=== PATIENT | female | born 1950 | race Caucasian/White ===

== ENCOUNTER 2017-03-21 20:18 | Emergency (ER) | END 2017-03-21 22:33 | disposition home or self-care (01) ==

== ENCOUNTER 2018-05-31 06:19 | Day surgery (SDC) | payer OTHER ==
[2018-05-30 10:22] VITALS: Ht 157.5 cm; Wt 67.7 kg
[~2018-05-31] VITALS: Ht 157.5 cm; Wt 67.7 kg
[2018-05-31] VITALS (12 sets, daily range): BP systolic 91–110; BP diastolic 50–69; PULSE 62–80; RESP 11–17
[~2018-05-31 06:19] MED LIST: ACET500C5 PO; AMLO-218 PO; CARV12.598 PO; GUAI5SYR2 PO; OSEL75CA23 PO
--- NOTE | 2018-05-31 07:23 | PREOPHP ---
DATE OF ADMISSION: 05/31/2018 HISTORY OF PRESENT ILLNESS: This is a 68-year-old lady, 8, para 7, with 1 spontaneous aborti on. Her last normal menstrual period was at the age of 46. She was admitted for LEEP and D and C. This patient had an abnormal Pap smear, ASCUS plus positive HPV. Colposcopy biopsy done showed BARBARA 2 to rule out cancer. She was admitted for LEEP and D and C. The procedures were explained to the cynthia calzada and she understood everything totally. The risks, benefits and alternatives were discussed wit h her as well. She is 9, para 7, with 7 normal deliveries. GYNECOLOGIC HISTORY: She had menarche at the age of 13, every 28 days interval, 3 to 4 days duration and moderate in amount. MEDICAL HISTORY: History of hypertension. FAMILY HISTORY: High blood pressure. Sister has diabetes and cancer. REVIEW OF SYSTEMS: CARDIOVASCULAR: No chest pains. RESPIRATORY: No cough. GASTROINTESTINAL: No diarrhea, no vomiting. GENITOURINARY: No dysuria. PHYSICAL EXAMINATION: GENERAL: Reveals a conscious, coherent lady in no acute distress. VITAL SIGNS: Her blood pressure 120/80, pulse rate 80 per minute, respirations 16 per minute. BREASTS, HEART AND LUNGS: Within normal limits. ABDOMEN: Soft. No organomegaly. PELVIC: Revealed the cervix to be firm, uterus of normal size, and adnexa were negative for masses. RECTAL: Confirmed the pelvic findings. EXTREMITIES: No pedal edema. ADMITTING DIAGNOSIS: Cervical intraepithelial neoplasia to rule out carcinoma of the cervix. The patient was planned to have the LEEP and D and C. The procedures were explained to the patient a nd she understood everything totally. The risks, benefits and alternatives were discussed with her a s well. Dictated By: TITO RAINES/ROYCE Conf#: [id number] DID#: [id number]
--- NOTE | 2018-05-31 08:06 | PREAC ---
Date/Time of Note Date/Time of Note DATE: 05/31/18 TIME: 08:05 Anesthesia Eval and Record Evaluation Time Pre-Procedure Interview DATE: 05/31/18 TIME: 08:04 Age 68 Sex female NPO: 8 hrs Preoperative diagnosis cervical dysplasia Planned procedure d and c , leep Past Medical History Past Medical History: Includes Cardio: HTN Surgery & Anesthesia Issues No known issue Meds Anticoagulation: No Beta Vivien within 24 hr: Yes Active Scripts Oseltamivir Phosphate* (Tamiflu*) 75 Mg Capsule, 75 MG PO BID for 5 Days, CAP Prov:PETRA WELLS MD 03/21/17 Guaifenesin-Dextromethorphan* (Robitussin* DM) 100MG/10MG/5ML Syrup, 5 ML PO Q4H PRN for COUGH for 4 Days, ML Prov:PETRA WELLS MD 03/21/17 Acetaminophen* (Tylophen*) 500 Mg Capsule, 1 CAP PO Q6H PRN for PAIN AND OR ELEVATED TEMP, #20 CAP Prov:PETRA WELLS MD 03/21/17 Reported Medications Carvedilol* (Coreg*) 12.5 Mg Tablet, 12.5 MG PO DAILY, #60 TAB 05/30/18 Amlodipine Besylate* (Norvasc*) 10 Mg Tablet, 10 MG PO DAILY, TAB 05/30/18 Meds reviewed: Yes Allergies Coded Allergies: No Known Allergy (Unverified , 10/04/15) Allergies Reviewed: Yes Labs/Studies Labs Reviewed: Reviewed by anesthesiologist Blood Bank Test 05/30/18 10:17 Antibody Screen NEGATIVE Blood Type AB POSITIVE test: N/A Studies: ECG, CXR Pre-procedure Exam Airway: Adequate mouth opening, Adequate thyromental dist Mallampati: Mallampati I Teeth: Normal Lung: Normal Heart: Normal ASA Physical Status ASA physical status: 2 Emergency: None Planned Anesthetic General/MAC: LMA Planned Pain Management Parenteral pain med Pre-operative Attestations Prior to commencing anesthesia and surgery, the patient was re-evaluated, there was verification of: *The patient's identity *The results of appropriate recent lab work and preoperative vital signs *The above evaluation not changing prior to induction *Anesthetic plan, risk benefits, alternative and complications discussed with patient/family; questions answered; patient/family understands, accepts and wishes to proceed. BABAK SABA May 31, 2018 08:06
[2018-05-31] MEDS ORDERED: PROPOFOL 100 ML ONE (09:31)
[2018-05-31] MEDS ORDERED: FENTAnyl 50 MCG/ML VIAL ONE (09:32)
[2018-05-31] MEDS ORDERED: STRONG IODINE 14 ML SOLUTION TOP ONE (09:40)
[2018-05-31] MEDS ORDERED: ONDANSETRON 4 MG INJ ONE (09:59)
[2018-05-31] MEDS ORDERED: DEXAMETHASONE 4 MG/ML 5 ML INJ ONE (09:59)
--- NOTE | 2018-05-31 10:19 | PAC ---
Date/Time of Note Date/Time of Note DATE: 05/31/18 TIME: 10:18 Post-Anesthesia Notes Post-Anesthesia Note Last documented vital signs tmp 98.4 bp 94/67 o2 sat 98%. p71 Activity: WNL Respiratory function: WNL Cardiovascular function: WNL Mental status: Baseline Pain reasonably controlled: Yes Hydration appropriate: Yes Nausea/Vomiting absent: Yes BABAK SABA May 31, 2018 10:18
[2018-05-31] MEDS ORDERED: hydrALAzine 20 MG INJ IV PRN (10:30)
[2018-05-31] MEDS ORDERED: ALBUTEROL 0.083% (NEB) 2.5 MG/3 ML AMP HHN PRN (10:30)
[2018-05-31] MEDS ORDERED: KETOROLAC 30 MG INJ IV PRN (10:30)
[2018-05-31] MEDS ORDERED: ONDANSETRON 4 MG INJ IV PRN (10:30)
[2018-05-31] MEDS ORDERED: EPHEDrine SULFATE 50 MG/5 ML SYG IV PRN (10:30)
[2018-05-31] MEDS ORDERED: MIDAZOLAM 1 MG/ML 2 ML INJ IV PRN (10:30)
[2018-05-31] MEDS ORDERED: OXYCODONE/ACETAMINOPHEN (5/325) TAB PO PRN ×2 (10:30)
[2018-05-31] MEDS ORDERED: DIPHENHYDRAMINE 50 MG INJ IV PRN (10:30)
[2018-05-31] MEDS ORDERED: HYDROmorphONE 1 MG/5 ML IV SYRINGE IV PRN ×3 (10:30)
[2018-05-31] MEDS ORDERED: LABETALOL HCL 20MG INJ IV PRN (10:30)
[2018-05-31] MEDS ORDERED: MEPERIDINE 25 MG INJ IV PRN (10:30)
[2018-05-31] MEDS ORDERED: FENTAnyl 50 MCG/ML VIAL IV PRN ×3 (10:30)
--- NOTE | 2018-05-31 11:12 | SIPON ---
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
[2018-05-31] MEDS ORDERED: ACETAMINOPHEN 325 MG TAB PO PRN (11:30)
--- NOTE | 2018-05-31 18:12 | OPR ---
DATE OF OPERATION: 05/31/2018 PREOPERATIVE DIAGNOSES: 1. Cervical intraepithelial neoplasia 2. 2. Rule out carcinoma of the cervix. POSTOPERATIVE DIAGNOSES: 1. Cervical intraepithelial neoplasia 2. 2. Rule out carcinoma of the cervix. 3. Pending pathology report. SURGEON: Lala Craven MD FLEET MAINTENANCE MANAGER: Jean zavala. ANESTHESIA: General. OPERATION PERFORMED: LEEP and D and C. OPERATIVE TECHNIQUE: Under general anesthesia, the patient was prepped and draped in the usual fashi on for vaginal surgery. Pelvic exam under anesthesia revealed the cervix to be firm, uterus of lala l size and adnexa were negative for masses. Then, the heavy weight vaginal retractor was put in plac e and the anterior lip of the cervix was grasped with an Allis clamp. The whole cervix was dabbed wi th Lugol's solution. The external os of the cervix did not take the Lugol's. The loop was passed fr om left to right on the anterior lip of the cervix and from left to right on the posterior lip of the cervix. A good amount of tissue was obtained. Another loop was passed up to the endocervical canal . A good amount of tissue was obtained. Endocervical curettage was done and a small amount of tissu e was obtained. The uterus was sounded to about 2 inches. Endometrial curettage was done and a smal l amount of tissue was obtained. The site of the biopsy was cauterized with a ball cautery. There w as no bleeding noted after cauterization. A small piece of Surgicel was left at the site of the biop sy. The patient tolerated the procedure well. Estimated blood loss was minimal. Vital signs were s table during and after the procedure. Dictated By: LALA CRAVEN MD NS/NTS Conf#: [id number] DID#: [id number]
== END 2018-05-31 12:15 | disposition home or self-care (01) ==
LOC: SDS 06:19
PROVIDERS: ATTEND Obstetrics & Gynecology
DX: N72 Inflammatory disease of cervix uteri (principal); I10 Essential (primary) hypertension
CPT/HCPCS: 57522; 84702; 86850; 86900; 86901; 88305; J1100; J2405; J3010; Z7512; Z7610